=== PATIENT | female | born 1985 | race Caucasian/White ===

== ENCOUNTER 2017-02-09 16:47 | Emergency (ER) | payer MEDICAID ==
[~2017-02-09] VITALS: Ht 167.6 cm; Wt 95.0 kg
[~2017-02-09 16:47] MED LIST: COLACE100 M1 PO; MIRALAX119 G1 PO; NO MEDS; NORCO 5-325 TA1 EACH PO; OYSTER SHELL C500 M2 PO; PRENATAL VITAMI1 TAB; SYNTHROID175 MC1 PO; TYLENOL325 MG; VYVANSE30 M1 PO; ZYRTEC10 M7 PO
[2017-02-09] MEDS ORDERED: XANAX0.5 M1 PO (18:33)
== END 2017-02-09 18:43 ==
LOC: EDMED 16:47
DX: F41.0 Panic disorder [episodic paroxysmal anxiety] (principal); Z98.51 Tubal ligation status; Z79.899 Other long term (current) drug therapy